=== PATIENT | female | born 1990 | race Caucasian/White ===

== ENCOUNTER 2017-06-27 04:07 | Emergency (ER) | payer BC, OTHER ==
[~2017-06-27] VITALS: Ht 170.2 cm; Wt 95.8 kg
[2017-06-27 04:08] VITALS: TEMP 36.4; Ht 170.2 cm; Wt 95.8 kg
[2017-06-27] MEDS ORDERED: SODIUM CHLORIDE 0.9% 1000ML 1,000 ML IV STA (04:52)
[2017-06-27] MEDS ORDERED: ONDANSETRON INJ 2 MG/ML 2 ML VIAL IV STA (04:52)
[2017-06-27] MEDS ORDERED: BCPILLS PO (05:12)
[2017-06-27 05:53] LABS: ALBUMIN 4.2 gm/dl (3.4-5.0); ALT/SGPT 19 U/L (12-78); AST/SGOT 10 U/L (15-37); BLOOD UREA NITROGEN 10 mg/dl (7-18); CALCIUM 9.4 mg/dl (8.5-10.1); CARBON DIOXIDE 28 mmol/L (21-32); CREATININE 1.07 mg/dl (0.60-1.20); GLUCOSE 137 mg/dl (70-99); POTASSIUM 3.9 mmol/L (3.5-5.1); SODIUM 139 mmol/L (136-145)
[2017-06-27 05:57] LABS: BASO % 0.1 %; BASO ABS # 0.02 K/uL (0-0.2); EOS % 0.5 %; EOS ABS # 0.08 K/uL (0-0.5); HEMATOCRIT 43.2 % (37-47); HEMOGLOBIN 14.5 g/dL (12.0-16.0); IG# 0.04 K/uL (0.00-0.02); LYMPH ABS # 1.47 K/uL (1.2-3.4); MEAN CELL VOLUME 93.9 fL (80-100); MEAN CORPUSCULAR HEMOGLOBIN 31.5 pg (25-34); MEAN CORPUSCULAR HGB CONC 33.6 g/dl (32-36); MEAN PLATELET VOLUME 10.1 fL (7.4-10.4); MONO % 3.2 %; MONO ABS # 0.47 K/uL (0.11-0.59); NEUT % 85.9 %; NEUT ABS # 12.67 K/uL (1.4-6.5); PLATELET COUNT 237 K/uL (130-400); RED CELL DISTRIBUTION WIDTH CV 12.1 % (11.5-14.5); RED CELL DISTRIBUTION WIDTH SD 41.4 fL (36.4-46.3); WHITE BLOOD COUNT 14.75 K/uL (4.8-10.8)
[2017-06-27] MEDS ORDERED: ACETAMINOPHEN IV 100 ML IV STA (05:57)
[2017-06-27 06:04] LABS: ALKALINE PHOSPHATASE 61 U/L (45-117); TOTAL PROTEIN 8.9 gm/dl (6.4-8.2)
[2017-06-27] MEDS ORDERED: OPTIRAY 320 IV PRN (06:30)
[2017-06-27 06:46] VITALS: BP 151/87; PULSE 68; O2SAT 98
--- NOTE | 2017-06-27 06:54 | DIAGNOSTIC IMAGING REPORT ---
CT ANGIOGRAM OF THE CHEST CLINICAL HISTORY: Atypical chest pain. Back pain. COMPARISON STUDY: Chest radiograph dated 06/27/2017. TECHNIQUE: Following the IV administration of 88 cc of Optiray 320, CT angiogram of the chest was performed from the upper abdomen to the thoracic inlet utilizing the pulmonary embolus protocol. Images are reviewed in the axial, sagittal, and coronal planes. 3-D MIPS images are created and assessed. IV contrast was administered without complication. A dose lowering technique was utilized adhering to the principles of ALARA. The examination is moderately degraded by motion artifact. CT DOSE: 476.55 mGy.cm FINDINGS: Thyroid: Imaged portions of the thyroid gland are normal in size and attenuation. Thoracic aorta: The thoracic aorta is normal in caliber and demonstrates standard 3-vessel arch anatomy. No dissection is seen. Pulmonary vasculature: The pulmonary trunk is normal in caliber. There are no filling defects identified in main, lobar, or proximal segmental pulmonary branches to suggest pulmonary embolus. Evaluation of the peripheral branches is degraded by motion artifact. Heart: The heart is normal in size and configuration, and without pericardial effusion. Lungs and pleural spaces: Evaluation of the lung parenchyma is degraded by motion artifact. No airspace consolidation or pleural effusion is seen. The trachea and central airways are clear. Mediastinum: There is no mediastinal lymphadenopathy. Agnes: Clear. Axillae: There is no axillary lymphadenopathy. Upper abdomen: Partially visualized upper abdominal viscera is within normal limits. Skeletal structures: No lytic or blastic bony lesions are seen. IMPRESSION: 1. Motion degraded examination. 2. There is no evidence of central pulmonary embolus in the main, lobar, or proximal segmental pulmonary arteries. 3. No airspace consolidation or pleural effusion is identified. Electronically signed by: Justus Tariq M.D. 06/27/2017 6:53 AM Dictated Date/Time: 06/27/2017 6:49 AM
[2017-06-27] MEDS ORDERED: FAMOTIDINE 20MG/5ML IV PUSH IV STA (06:58)
--- NOTE | 2017-06-27 07:10 | EMERGENCY ROOM VISIT NOTE ---
History Report prepared by Manishibmallory: Bernardo Canas Under the Supervision of: Dr. Winnie Blount D.O. First contact with patient: 04:25 Chief Complaint: CHEST PAIN Stated Complaint: CHEST AND BACK PAIN - THROWING UP - BOWEL MOVEMENT History of Present Illness The patient is a 27 year old female who presents to the Emergency Room with complaints of constant chest and back pain beginning last night. She also complains of vomiting and chills. She states that she has a history of similar symptoms (other than vomiting) always occurring one week before her menstrual period. The patient admits that she drank alcohol last night about 9.5 hours ago. She also admits that she used marijuana last night which improved her symptoms. She denies any changes to her menstrual cycles. The patient denies chance of . She denies any fevers, black or bloody stool, or diarrhea. She notes that her brother and had an illness recently. The patient states that her most recent episode of similar symptoms occurred five days ago. She denies any recently prolonged travel. She has a family history of [place]. Source of History: patient Onset: Last night Position: chest, back Associated Symptoms: + chills, + vomiting, No fevers, No melena, No hematochezia, No diarrhea Review of Systems See HPI for pertinent positives & negatives. A total of 10 systems reviewed and were otherwise negative. Past Medical & Surgical Medical Problems: (1) No Known Active Medical Problems Surgical Problems: (1) Hx of breast reduction, elective Family History No pertinent family history stated. Social History Smoking Status: Never Smoker Marital Status: Current/Historical Medications Scheduled Control Pills ( Control Pills), 1 TAB PO DAILY Allergies Coded Allergies: Amoxicillin (Verified Allergy, Unknown, hives, 06/27/17) Sulfa Antibiotics (Verified Allergy, Unknown, hives, 06/27/17) Physical Exam Vital Signs Date Time Temp Pulse Resp B/P (MAP) Pulse Ox O2 Delivery O2 Flow Rate FiO2 06/27/17 06:46 68 18 151/87 98 Room Air 06/27/17 06:43 87 158/100 99 Room Air 06/27/17 04:26 77 06/27/17 04:20 Room Air 06/27/17 04:08 36.4 70 18 131/88 97 Room Air Physical Exam GENERAL: alert, well appearing, well nourished, no distress, non-toxic EYE EXAM: normal conjunctiva, PERRL and EOM's grossly intact OROPHARYNX: no exudate, no erythema, lips, buccal mucosa, and tongue normal and mucous membranes are moist NECK: supple, no nuchal rigidity, no adenopathy, non-tender LUNGS: Clear to auscultation. Normal chest wall mechanics HEART: no murmurs, S1 normal and S2 normal ABDOMEN: abdomen soft, non-tender, normo-active bowel sounds, no masses, no rebound or guarding. BACK: Back is symmetrical on inspection and there is no deformity, no midline tenderness, no CVA tenderness. SKIN: no rashes and no bruising UPPER EXTREMITIES: upper extremities are grossly normal. LOWER EXTREMITIES: No pitting edema. NEURO EXAM: Normal sensorium, cranial nerves II-XII grossly intact, normal speech, no gross weakness of arms, no gross weakness of legs. Medical Decision & Procedures ER Provider Diagnostic Interpretation: Two View Chest/Abdomen X-ray interpreted by me: No cardiomegaly. No effusion. No wide mediastinum. No focal infiltrate. No pulmonary edema. No pneumothorax. Scattered air and stool. No SBO. No free air. CT:Per my review, radiologist interpretation. CT ANGIOGRAM OF THE CHEST FINDINGS: Thyroid: Imaged portions of the thyroid gland are normal in size and attenuation. Thoracic aorta: The thoracic aorta is normal in caliber and demonstrates standard 3-vessel arch anatomy. No dissection is seen. Pulmonary vasculature: The pulmonary trunk is normal in caliber. There are no filling defects identified in main, lobar, or proximal segmental pulmonary branches to suggest pulmonary embolus. Evaluation of the peripheral branches is degraded by motion artifact. Heart: The heart is normal in size and configuration, and without pericardial effusion. Lungs and pleural spaces: Evaluation of the lung parenchyma is degraded by motion artifact. No airspace consolidation or pleural effusion is seen. The trachea and central airways are clear. Mediastinum: There is no mediastinal lymphadenopathy. Agnes: Clear. Axillae: There is no axillary lymphadenopathy. Upper abdomen: Partially visualized upper abdominal viscera is within normal limits. Skeletal structures: No lytic or blastic bony lesions are seen. IMPRESSION: 1. Motion degraded examination. 2. There is no evidence of central pulmonary embolus in the main, lobar, or proximal segmental pulmonary arteries. 3. No airspace consolidation or pleural effusion is identified. Electronically signed by: Justus Vilbert, M.D. 06/27/2017 6:53 AM Laboratory Results 06/27/17 05:25 Red Blood Count 4.60, Mean Corpuscular Volume 93.9, Mean Corpuscular Hemoglobin 31.5, Mean Corpuscular Hemoglobin Concent 33.6, Mean Platelet Volume 10.1, Neutrophils (%) (Auto) 85.9, Lymphocytes (%) (Auto) 10.0, Monocytes (%) (Auto) 3.2, Eosinophils (%) (Auto) 0.5, Basophils (%) (Auto) 0.1, Neutrophils # (Auto) 12.67, Lymphocytes # (Auto) 1.47, Monocytes # (Auto) 0.47, Eosinophils # (Auto) 0.08, Basophils # (Auto) 0.02 06/27/17 05:25 Test 06/27/17 05:25 White Blood Count 14.75 K/uL (4.8-10.8) Red Blood Count 4.60 M/uL (4.2-5.4) Hemoglobin 14.5 g/dL (12.0-16.0) Hematocrit 43.2 % (37-47) Mean Corpuscular Volume 93.9 fL (80-100) Mean Corpuscular Hemoglobin 31.5 pg (25-34) Mean Corpuscular Hemoglobin Concent 33.6 g/dl (32-36) Platelet Count 237 K/uL (130-400) Mean Platelet Volume 10.1 fL (7.4-10.4) Neutrophils (%) (Auto) 85.9 % Lymphocytes (%) (Auto) 10.0 % Monocytes (%) (Auto) 3.2 % Eosinophils (%) (Auto) 0.5 % Basophils (%) (Auto) 0.1 % Neutrophils # (Auto) 12.67 K/uL (1.4-6.5) Lymphocytes # (Auto) 1.47 K/uL (1.2-3.4) Monocytes # (Auto) 0.47 K/uL (0.11-0.59) Eosinophils # (Auto) 0.08 K/uL (0-0.5) Basophils # (Auto) 0.02 K/uL (0-0.2) RDW Standard Deviation 41.4 fL (36.4-46.3) RDW Coefficient of Variation 12.1 % (11.5-14.5) Immature Granulocyte % (Auto) 0.3 % Immature Granulocyte # (Auto) 0.04 K/uL (0.00-0.02) Prothrombin Time 10.2 SECONDS (9.0-12.0) Prothromb Time International Ratio 1.0 (0.9-1.1) D-Dimer 2890 ug/L FEU (0-500) Anion Gap 6.0 mmol/L (3-11) Est Creatinine Clear Calc Drug Dose 93.9 ml/min Estimated GFR () 82.4 Estimated GFR (Non- 71.1 BUN/Creatinine Ratio 9.0 (10-20) Calcium Level 9.4 mg/dl (8.5-10.1) Magnesium Level 2.1 mg/dl (1.8-2.4) Total Bilirubin 0.1 mg/dl (0.2-1) Aspartate Amino Transf (AST/SGOT) 10 U/L (15-37) Alanine Aminotransferase (ALT/SGPT) 19 U/L (12-78) Alkaline Phosphatase 61 U/L (45-117) Troponin I < 0.015 ng/ml (0-0.045) Total Protein 8.9 gm/dl (6.4-8.2) Albumin 4.2 gm/dl (3.4-5.0) Globulin 4.7 gm/dl (2.5-4.0) Albumin/Globulin Ratio 0.9 (0.9-2) Thyroid Stimulating Hormone (TSH) 4.750 uIu/ml (0.300-4.500) Human Chorionic Gonadotropin, Qual NEG (NEG) Lyme Disease IgG Antibody NEG (NEG) Lyme Disease IgM Antibody NEG (NEG) Laboratory results per my review. Medications Administered Medications (Trade) Dose Ordered Sig/Cristian Route Start Time Stop Time Status Last Admin Dose Admin Sodium Chloride 1,000 ml @ 999 mls/hr Q1H1M STAT IV 06/27/17 04:52 06/27/17 05:52 DC 06/27/17 05:31 999 MLS/HR Ondansetron HCl (Zofran Inj) 4 mg NOW STAT IV 06/27/17 04:52 06/27/17 04:54 DC 06/27/17 05:31 4 MG Acetaminophen 100 ml @ 400 mls/hr NOW STAT IV 06/27/17 05:57 06/27/17 06:11 DC 06/27/17 06:31 400 MLS/HR Famotidine (Pepcid 20mg Iv Push) 20 mg ONE STAT IV 06/27/17 06:58 06/27/17 06:59 DC 06/27/17 07:10 20 MG ECG Indication: chest pain Rate (beats per minute): 67 Rhythm: normal sinus Findings: no acute ischemic change, no ectopy, other (Normal axis. Normal intervals. ) ED Course 0433: The patient was evaluated in room A11B. A complete history and physical exam was performed. 0700: Upon reevaluation, the patient is feeling better. I discussed the findings and the treatment plan with the patient. She verbalizes agreement and understanding. The patient was discharged home. Medical Decision Differential diagnosis: Etiologies such as cardiac ischemia, aortic dissection, pulmonary embolism, pneumonia, pneumothorax, musculoskeletal, infections, pericarditis, myocarditis , esophageal rupture, gastrointestinal, as well as others were entertained. Patient well-appearing here despite complaints. Heart score negative. CT imaging of the chest negative labs otherwise reassuring, mild leukocytosis likely secondary to vomiting. Patient states has had ongoing similar symptoms however not quite as severe as tonight for very long time, and seem to correlate with her cycle. Discussed with patient possible component of GERD/ gastritis, advised avoidance of acidic foods in her diet, and follow up with her PCP. Discussed with patient avoidance of alcohol which could also exacerbate underlying stomach irritation. Discussed symptoms to watch and return for, she verbalized understanding. Doubt occult infectious etiology, doubt occult GI bleed, no evidence of pneumonia or effusion, no evidence of tamponade, doubt pericarditis/myocarditis. Patient improved here following medications. Medication Reconcilliation Current Medication List: was personally reviewed by me Blood Pressure Screening Patient's blood pressure: Elevated blood pressure Blood pressure disposition: Elevated BP felt to be situational Impression Primary Impression: Chest pain Additional Impression: Back pain Scribe Attestation The scribe's documentation has been prepared under my direction and personally reviewed by me in its entirety. I confirm that the note above accurately reflects all work, treatment, procedures, and medical decision making performed by me. Departure Information Dispostion Home / Self-Care Referrals No Doctor, Assigned (PCP) Patient Instructions My [facility] Additional Instructions Please follow up with your family doctor regarding episodes tonight. Please avoid acidic foods disease can contribute to stomach and esophageal irritation, these include alcohol, coffee, soda, tomato-based products, citrus fruits. Please also mentioned to your MEDICAL REFERRAL COORDINATOR the cyclical pattern to your symptoms that you have noticed. Please drink plenty of water. You may use Tylenol as needed for pain, please be cautious using any anti-inflammatories as these can irritate her stomach. Do not take anti-inflammatories on an empty stomach. If you develop any recurrent or worsening chest and back pain, develop vomiting, fevers, black or bloody stools, dizziness, or you have any other new concerns, please return the emergency room. Problem Qualifiers Primary Impression: Chest pain Chest pain type: unspecified Qualified Codes: R07.9 - Chest pain, unspecified Additional Impression: Back pain Back pain location: thoracic back pain Chronicity: acute Back pain laterality: midline Qualified Codes: M54.6 - Pain in thoracic spine
[2017-06-27] MEDS ORDERED: ONDANSETRON HOME PACK 4MG OD TAB PO ONE (07:15)
--- NOTE | 2017-06-27 10:09 | DIAGNOSTIC IMAGING REPORT ---
PA CHEST WITH ABDOMINAL SERIES CLINICAL HISTORY: Atypical chest pain. Back pain. Transabdominal pain. FINDINGS: A PA chest radiograph is obtained. No prior studies are available for comparison at the time of dictation. The cardiomediastinal silhouette is unremarkable. The lungs and pleural spaces are clear. No pneumothorax is seen. The bony thorax is grossly intact. Supine and erect abdominal radiographs are obtained. No prior studies are available for comparison at the time of dictation. There is a nonobstructed abdominal bowel gas pattern. There is mild to moderate colonic fecal retention. No evidence of intraperitoneal free air is seen. There are no abnormal abdominal calcifications. The lumbosacral spine and bony pelvis appear intact. IMPRESSION: 1. No active disease in the chest. 2. Nonobstructed abdominal bowel gas pattern. Electronically signed by: Justus Tariq M.D. 06/27/2017 10:08 AM Dictated Date/Time: 06/27/2017 10:07 AM
== END 2017-06-27 07:14 | disposition home or self-care (01) ==
LOC: C.EDB 04:08 → C.EDA 07:14
DX: R07.9 Chest pain, unspecified (principal); M54.6 Pain in thoracic spine; R11.10 Vomiting, unspecified; Z98.890 Other specified postprocedural states; Z82.49 Family history of ischemic heart disease and other diseases of the circulatory system